=== PATIENT | female | born 1970 | race Caucasian/White ===

== ENCOUNTER 2016-10-28 08:56 | Day surgery (SDC) | payer OTHER ==
[~2016-10-28] VITALS: Ht 170.2 cm; Wt 77.9 kg
[~2016-10-28 08:56] MED LIST: Aloe Vera PO; CeFAZolin Inj 2 GM in IV Premix 1 EACH IV ONE; DICY20TA10 PO; FLUT15.88 NS; GLUT500T8 PO; LACT1CAP65 PO; LEVO50TA6 PO; Lactated Ringer's 1,000 ML IV ONE; OMEG1CAP25 PO; RANI150C4 PO; SIME80TA53 PO
[2016-10-28] MEDS ORDERED: Rocuronium 10 mg/mL 5 mL Inj ONE (08:57)
[2016-10-28] MEDS ORDERED: Dexamethasone 4 mg/mL Inj ONE (08:57)
[2016-10-28] MEDS ORDERED: Glycopyrrolate 0.2 mg/mL 5 mL Inj ONE (08:57)
[2016-10-28] MEDS ORDERED: Succinylcholine Chloride 20 mg/mL 5 mL Inj ONE (08:57)
[2016-10-28] MEDS ORDERED: Propofol 10,000 mCg/mL 20 mL Inj ONE (08:57)
[2016-10-28] MEDS ORDERED: Neostigmine 1 mg/mL 5 mL Inj ONE (08:57)
[2016-10-28] MEDS ORDERED: fentaNYL-PF 50 mCg/mL 2 mL Inj ONE (08:57)
[2016-10-28] MEDS ORDERED: Ondansetron 2 mg/mL 2 mL Inj ONE (08:57)
[2016-10-28] MEDS ORDERED: IRON PO (09:18)
[2016-10-28] MEDS ORDERED: LORA0.5T PO (09:18)
[2016-10-28] MEDS ORDERED: DOXY25TA46 PO (09:18)
[2016-10-28] MEDS ORDERED: OMEP20TA24 PO (09:18)
[2016-10-28 09:42] VITALS: BP 126/66; PULSE 58; RESP 16; O2SAT 98
--- NOTE | 2016-10-28 11:25 | DRSVH ---
PROCEDURE: NM SENTINEL NODE INJECTION ONLY, RIGHT BREAST RADIOPHARMACEUTICAL: 0.5 mCi Millipore filtered Tc-99m sulfur colloid. INDICATIONS: 46 year-old woman with right breast cancer. PROCEDURE: The indications, alternatives, benefits, risks, and complications of the procedure were explained to the patient. Written informed consent was obtained and placed in the chart. The area around the nip ple was prepped and draped in a sterile fashion. Tc-99m sulfur colloid was injected in the outer edg e of the areola in the right breast. No image was obtained. IMPRESSION: Administration of radiotracer into the right breast periareolar region for intra-operati ve sentinel lymph node localization. Dictated by: Swapna Krishna M.D. on 10/28/2016 at 11:22 Approved by: Swapna Krishna M.D. on 10/28/2016 at 11:23
[2016-10-28] MEDS ORDERED: Lactated Ringer's 500 ML IV PRN (12:51)
[2016-10-28] MEDS ORDERED: Lactated Ringer's 1,000 ML IV SCH (12:51)
--- NOTE | 2016-10-28 12:51 | PCM.HPANE ---
Patient Data Surgeon Admitting Provider: Attending Provider:Stephanie Montoya MD Primary Care Physician:Deep Mcnulty DO Other Provider:Roman Foley Anesthesia Reason for Visit Right Breast Cancer Ht/WT & BMI Height (Feet): 5 Height (Inches): 7 Weight (Kilograms): 77.9 Body Mass Index 26.00 Allergies Coded Allergies: metronidazole (Verified Allergy, Severe, Migraine Headache,n&v, 10/24/16) Uncoded Allergies: DUST,DANDER, CEDAR POLLEN (Adverse Reaction, Severe, congestion, sneezing, runny nose, itching eyes, 10/24/16) Past Anesthesia History Anesthesia History: Denies:: Anesthesia Reactions, Malignant Hyperthermia Diabetes History Hx Diabetes?: No MRSA MRSA: No Medications Hypertension Medication: No Home Meds Incl Beta Supriya: No Reported Medications [Iron] No Conflict Check25 Mg PO DAILY 10/28/16 Lorazepam 0.5 Mg Tablet0.5 Mg PO TID PRN For Anxiety Ref 0 10/28/16 Doxylamine Succinate (Unisom)25 Mg Bpewfn62.5 Mg PO HS 10/28/16 Omeprazole Magnesium (Prilosec Otc)20 Mg Tablet.dr20 Mg PO DAILY #1 PKG Ref 0 10/28/16 Glutamine (l-Glutamine)500 Mg Juwyds082 Mg PO DAILY 10/24/16 Simethicone (Gas-X)80 Mg Tpokrz19 Mg PO QID PRN prn PT USES 80MG "CHEWS" 10/24/16 [Aloe Vera] No Conflict Fxdcw222 Mg PO DAILY 09/25/16 Lactobacillus Acidophilus (Probiotic)1 Each Capsule1 Each PO DAILY 09/25/16 Gilman-3 Fatty Acids/Fish Oil (Gilman 3 Fish Oil Softgel)1 Each Capsule.dr1 Each PO DAILY 09/25/16 Dicyclomine 20 Mg Alcbqe77 Mg PO QID PRN For GI Cramps Ref 0 09/25/16 Fluticasone Propionate 50 Mcg/Actuation [place].susp15.8 Ml NS DAILY 09/25/16 Ranitidine 150 Mg Nnunuhj049 Mg PO BID Ref 0 09/25/16 Levothyroxine 50 Mcg Pwvunr63 Mcg PO DAILY Ref 0 09/25/16 Discontinued Reported Medications [Comfort Iron] No Conflict Check25 Mg PO DAILY 09/25/16 Simethicone (Gas-X)125 Mg Gitmpya987 Mg PO PRN For Indigestion 09/25/16 Doxylamine Succinate (Unisom)25 Mg Tablet6 Mg PO HS PRN Insomnia 09/25/16 Omeprazole Magnesium (Prilosec Otc)20 Mg Tablet.dr20 Mg PO DAILY PRN For Indigestion #1 PKG Ref 0 09/25/16 History History of ENT Problems?: Yes HEENT History: Positive for:: Sinus Problem (ENVIRONMENTAL ALLERGIES (PETS, DUST,TREES)) Denies:: Cataracts Hearing Problem Hx of Heart Problems?: No Cardiovascular History: Denies:: Heart Murmur Hypertension Other Cardiac History: HX OF ANEMIA Hx of Respiratory Problem?: No Respiratory History: Denies:: Use of C-PAP Machine Hx Neurologic Problems?: No Hx of GI Problems?: Yes Gastrointestinal History: Positive for:: Gastroesphageal Reflux (on H2B and PPI) Other GI Pertinent History: IBS W/ CONSTIPATION Hx of Problems?: No Female Hx: Positive for:: Problems with Breasts? (S/P RT BREAST BX RT BREAST CA=CURRENT PROBLEM) Denies:: Currently Endometriosis Pelvic Inflammatory Skin History: Denies:: History Skin Disorders? Pressure Ulcers Hx Musculoskeletal Problems?: Yes Hx of Psycho/Social Problems?: Yes Psycho Social History: Positive for:: Hx Depression (Post ) Hx Surgeries?: Yes (L5S1 FUSION,RT BREAST BX) Hx Any Other Health Problems?: Yes Other History: Positive for:: Cancer (Right Breast Cancer) Hospitalization ([facility]) Thyroid Disease Denies:: Endocrine Disease History Blood Transfusions: Denies:: Blood Transfusions Hx Diabetes: No Hx Alcohol Use: YesAlcoholic Drinks Per Day: 4X/YRHx Substance Use: No Smoking Status: Never Smoker Have You Smoked inLast 12 mo: No Stop/Bang S-Snoring: Do You Snore Loudly: No T-Tired: feel tired, fatigued: No O-Obsered: Observed not breath: No P-Blood Pressure: treated: No B- Body Mass Index > 35 kg/m2: No A- Age over 50: No N- Neck Large Circumference: No G- Gender Male: No DARLYN Total Score: 0 DARLYN Risk Assessment: Low Risk, <3 Yes Risk Assessment Category Category 1A: Patient has history of documented sleep apnea, and HAS NOT received any narcotic, sedative or anesthesia administration during this stay. Category 1B: Patient has history of documented sleep apnea, and HAS received any narcotic , sedative or anesthesia administration during this stay Category 2: Patient has SUSPECTED Obstructive Sleep Apnea, and HAS received any narcotic , sedative or anesthesia administration during this stay. Category 3: Patient has SUSPECTED Obstructive Sleep Apnea and HAS NOT received narcotic, sedative or anesthesia administration during this stay. Category 4: Outpatient in Procedural Areas with known sleep apnea or who screen positive for High Risk via the STOP/BANG questionnaire. Exam Exam Vital Signs Vital Signs Date Time Temp Pulse Resp B/P Pulse Ox O2 Delivery O2 Flow Rate FiO2 10/28/16 09:42 36.1 58 16 126/66 98 Room Air General Appearance: Alert, Oriented X3, Cooperative, No Acute Distress HEENT/AIRWAY: MP 2 Lungs: Clear to Auscultation, Normal Air Movement Heart: Exam Unremarkable, Regular Rate/Rhythm, No Murmurs/Rubs/Gallops Meds/Labs/Diagnostics Admission Meds Current Medications Lactated Ringer's (Lr) 1,000 ml @ 120 mls/hr Q8H20M ONCE IV Last administered on 10/28/16t 09:13; Start 10/28/16 at 05:00; Stop 10/28/16 at 13:19 Plan Impression Patient chart reviewed, patient interviewed and anesthestic plan with risks, benefits, and alternatives discussed, and informed consent obtained. NPO Status: 10/27/16 ASA Physical Status: ASA2 Mod Systemic Disease Anesthetic Plan: GA (GETA secondary to GERD) Bene/Risks/Altern/Consents: Yes HP Complete Prior to Induction: Yes Duane Rosa MD Oct 28, 2016 10:53
[2016-10-28] MEDS ORDERED: POLY17PO6 PO (12:52)
[2016-10-28] MEDS ORDERED: OXYC5TAB72 PO (12:52)
[2016-10-28] MEDS ORDERED: Ondansetron 2 mg/mL 2 mL Inj IVPUSH PRN (12:55)
[2016-10-28] MEDS ORDERED: EPHEDrine Sulfate 50 mg/mL Inj IVPUSH PRN (12:55)
[2016-10-28] MEDS ORDERED: Labetalol 5 mg/mL 4 mL Inj IV PRN (12:55)
[2016-10-28] MEDS ORDERED: hydrALAZINE 20 mg/mL Inj IVPUSH PRN (12:55)
[2016-10-28] MEDS ORDERED: Atropine 0.4 mg/mL Inj IVPUSH PRN (12:55)
[2016-10-28] MEDS ORDERED: Phenylephrine 10,000 mCg/mL Inj IVPUSH PRN (12:55)
[2016-10-28] MEDS ORDERED: fentaNYL-PF 50 mCg/mL 2 mL Inj IVPUSH PRN (12:55)
[2016-10-28] MEDS ORDERED: MetoCLOpramide 5 mg/mL 2 mL Inj IVPUSH PRN (12:55)
[2016-10-28] MEDS ORDERED: HYDROmorphone 1 mg/mL Inj IVPUSH PRN (12:55)
[2016-10-28] MEDS ORDERED: Bupivacaine-MPF 0.5% 30 mL Inj INFILTRATE ONE (13:16)
[2016-10-28 15:00] VITALS: BP 115/69; PULSE 64; RESP 14; O2SAT 97
[2016-10-28 15:10] VITALS: BP 120/62; PULSE 58; RESP 17; O2SAT 98
--- NOTE | 2016-10-28 15:10 | PCM.ANEP1 ---
Post Anesthesia Phase 1 PACU Phase 1 Assessment Vital Signs Vital Signs Date Time Temp Pulse Resp B/P Pulse Ox O2 Delivery O2 Flow Rate FiO2 10/28/16 09:42 36.1 58 16 126/66 98 Room Air Anesthetic Administered: GA Level of Alertness: Awake, talking ANDRADE's with Equal Strength: Yes Pain: No Nausea or Vomiting: No Oxygen Delivery: Nasal Cannula Lungs: Clear to Auscultation, Normal Air Movement Summary VSS Duane Rosa MD Oct 28, 2016 15:10
--- NOTE | 2016-10-28 15:13 | PCM.ANEP2 ---
Post Anesthesia Evaluation ASA/CMS Post Anesthesia VS in Patient's Normal Range?: Yes Resp Stable; Airway Patent?: Yes CV Function & Hydration Stable: Yes Mental Status Recovered?: Yes Pain control Satisfactory?: Yes N/V Control Satisfactory?: Yes Duane Rosa MD Oct 28, 2016 15:13
[2016-10-28 15:19] VITALS: BP 118/62; PULSE 61; RESP 17; O2SAT 98
--- NOTE | 2016-10-28 15:22 | PCM.SURGPO ---
Immediate Operative Note Date of Surgery: Oct 28, 2016 Pre Operative Diagnosis Right Breast Cancer Post Operative Diagnosis Right Breast Cancer Procedure Wire localized Right Partial Mastectomy with [place] Lymph node biopsy Surgeon and Title Curator Surgeon: Stephanie Montoya MD Assistants: Maciel Aguilera PAC Findings Specimen radiograph with clip, SLN with count of 1436, background less than 5% Complications There were no periprocedural complications identified. Surgical Specimen Removed: Yes Specimen sent to Pathology: Yes Surgical Specimen description: 1. Wire localized R partial mastectomy 2. R Axillary SLN #1 Anesthetic Administered: GA Grafts, Implants: None Output, Estimated Blood Loss: 0 Blood Admin during surgery: No Attending Statement Figure Skater listed was medically necessary for the successful completion of the case Stephanie Montoya MD Oct 28, 2016 15:22
[2016-10-28 15:36] VITALS: BP 113/70; PULSE 63; RESP 16; O2SAT 96
[2016-10-28 15:45] VITALS: BP 116/64; PULSE 75; RESP 16; O2SAT 96
--- NOTE | 2016-10-28 18:42 | OP ---
[address] [address] OPERATIVE REPORT PATIENT: ALLA WISE : 1970 MR#: [id number] ADMIT: 10/28/2016 JOB ID: [id number] DATE OF SURGERY: 10/28/2016 PREOPERATIVE DIAGNOSIS(ES): T2, N0 right breast cancer. POSTOPERATIVE DIAGNOSIS(ES): T2, N0, right breast cancer. PROCEDURE PERFORMED: Wire localized right partial mastectomy and right axillary sentinel lymph node biopsy. SURGEON: Stephanie Montoya MD. MOTORCOACH OPERATOR: Maciel Aguilera PA-C. INDICATIONS: The patient is a 46-year-old lady who had a diagnosis of right breast cancer based on a screening mammogram done on September 04, 2016. She has not had any symptoms. A screening mammogram showed clustered amorphous calcifications in the right breast posterior depth, superior region. She had a stereotactic core biopsy on September 18, 2016, which showed invasive ductal carcinoma, ER positive, FL positive, and HER-2 negative. Breast MRI showed a 2.8 cm area around the biopsy cavity with delayed vascular enhancement. There was an additional lesion on the left breast in posterior depth and mildly prominent lymph node in the right axilla. She had a second-look ultrasound which did not corroborate the findings of the MRI and she had BRCA testing which was found to be negative. After discussing the risks, benefits, and alternatives, she is here today for wire localized right partial mastectomy and right axillary sentinel lymph node biopsy. PROCEDURE DETAILS: She had a wire localization [facility] earlier today, and after, had radiocolloid injection in the Day Surgery area. She was then brought to the operating room. Right breast and axilla were prepped and draped in the usual sterile fashion. Surgical time-out was undertaken using safety checklist, and all were in agreement. I began by first making sure we had good activity in the axilla with the gamma probe, which we did. I then made a curvilinear incision in the right breast, superomedial to the wire insertion site. I raised skin flaps towards the wire and then delivered the wire into the surgical field. I then circumferentially dissected a spherical specimen with sharp dissection, going posteriorly all the way down to the pectoralis major muscle. After getting down to the chest wall, I marked the specimen, orienting it with a short stitch superior, long stitch lateral, and then lifted the specimen off the pectoralis muscle, including the pectoralis fascia within the specimen. After removing the specimen, I marked the posterior margin with a double stitch and then obtained a specimen radiograph which showed the clip to be well centered in the specimen. At this point, I directed my attention to the right axilla and made an incision immediately posterior to the breast into the right axilla, where we had maximal activity and divided the skin and subcutaneous tissue sharply and approached the axilla. The first specimen I took off the right axilla. It actually turned out to be axillary fascia superficially with no lymph nodes. After that, I was able to isolate the sentinel lymph node, which did appear somewhat elongated, and I removed it with a combination of blunt and sharp dissection, controlling the lymphatic channels with some small clips. The axillary count on the sentinel lymph node was 1436, with a background in the axilla after that being 20. After ensuring hemostasis, the skin incision was reapproximated with 3-0 Vicryl, followed by 4-0 Monocryl. Steri-Strips and a sterile dressing were applied. Patient was recovered from anesthesia and was taken to the recovery room in a stable condition. MADDY
--- NOTE | 2016-10-29 07:14 | DRSVH ---
SPECIMEN RIGHT BREAST: 10/28/2016 CLINICAL: Breast specimen. Correlation is made to exams dated: 10/28/2016 mammogram, 09/18/2016 stereotactic biopsy, 09/04/2016 ma mmogram, and 09/04/2016 mammogram - [facility]. A lumpectomy specimen was imaged for the previous biopsy site located in the right breast at 1 o'isai ck anterior depth. IMPRESSION: SPECIMEN The imaged specimen includes a biopsy clip and the distal portion of the localization wires. This exam was interpreted at Station ID: [id number]. Varsha forrest/juan daniel:10/28/2016 16:00:14 Additional referring physicians: LORIN SALAZAR, AYSHA WISEMAN
[2016-10-29] MEDS ORDERED: Polyethylene Glycol (PEG) 17 Gm Powder PO SCH (08:30)
--- NOTE | 2016-11-01 10:10 | PATH ---
SURGICAL PATHOLOGY Attending Physician:Stephanie Montoya MD CASE STATUS: Signed Out PATIENT NAME: ALLA WISE PID: [id number] : 1970 DATE COLLECTED:10/28/2016 22:44 SPECIMEN: 1: Breast, Simple Mastectomy (lymph nodes submitted separately) 2: [place] Lymph Node CLINICAL HISTORY: RIGHT BREAST CANCER 1). RIGHT PARTIAL MASTECTOMY, RIGHT UPPER INNER QUADRANT, STITCH SHORT SUPERIOR, LONG LATERAL , DOUBLE POSTERIOR 2). RIGHT AXILLARY SENTINEL LYMPH NODE, TIME OUT OF BODY 13:55 TIME IN FORMALIN 13:58 FINAL DIAGNOSIS: 1.RIGHT BREAST WIRE LOCALIZATION EXCISIONAL SPECIMEN: STATUS POST NEEDLE BIOPSY, RECENT WITH RESIDUAL DUCT CARCINOMA IN SITU, BUT NO RESIDUAL INVASIVE MALIGNANCY (SEE [id number]). 1.SPECIMEN INTEGRITY: INTACT. 2.SPECIMEN SIZE: 2.8 X 5.8 X 5.0 CM. 3.LARGEST AREA OF DCIS: 0.7 CM. 4.HISTOLOGIC TYPE: SOLID, INTERMEDIATE TO HIGH NUCLEAR GRADE, WITHOUT NECROSIS. 5.MICROCALCIFICATIONS: PRESENT. 6.SURGICAL MARGINS: DCIS PRESENT 0.2 CM FROM THE INKED ANTERIOR MARGIN AND 0.1 CM FROM THE INKED LATERAL MARGIN. ALL OTHER MARGINS GREATER THAN 1.0 CM. 7.AXILLARY LYMPH NODES: SINGLE SENTINEL LYMPH NODE NEGATIVE FOR MALIGNANCY (SEE PART 2). 8.HORMONE RECEPTOR STATUS (PERFORMED ON PREVIOUS NEEDLE BIOPSY [id number]): ESTROGEN RECEPTOR POSITIVE, PROGESTERONE RECEPTOR POSITIVE, AND HER2-CALLIE NEGATIVE, ALL BY IMMUNOHISTOCHEMISTRY. 9.PATHOLOGIC STAGE (BASED ON LARGEST LINEAR MEASUREMENT OF INVASIVE CARCINOMA ON PREVIOUS BIOPSY 0.5 CM): pT1a, pN0 (sn). 2.RIGHT AXILLARY SENTINEL LYMPH NODE: NEGATIVE FOR MALIGNANCY BY SERIAL HISTOLOGIC SECTIONS. ICD10 CODE C50.211 GROSS DESCRIPTION: The specimens are received in formalin, labeled with the patient's name, and sublabeled as the following: (1) right partial mastectomy upper inner quadrant; (2) right axillary sentinel lymph node. (1) The specimen consists of a piece of breast tissue (2.8 cm AP, 5.8 cm SI, 5.0 cm ML) with no overlying skin. The specimen is oriented with 3 black sutures (short-superior, long-lateral, double-posterior). A localization wire is present. The specimen is serially sectioned SI into 17 slices, each approximately 0.3 cm thick, with the superior and inferior resection margins as slices #1 and #17 respectively. The breast tissue is fatty and contains a ahn-white solid, partially hard, ill defined fibrous area (3.3 x 1.5 x 1.2 cm) within slices #7-#17. This area is less than 0.1 cm from the anterior, 0.4 cm from the posterior, 2.2 cm from the superior, less than 0.1 cm from the inferior, 2.5 cm from the medial, and 0.5 cm from the lateral resection margins. A cystic cavity (0.8 x 0.7 x 0.5 cm) is located within slices #12 and #13. The cavity contains a ahn-brown solid gelatinous material. No defined masses or lesions are identified. Ink code: purple-anterior; yellow-posterior; black-superior; orange-inferior; green-medial; blue-lateral. Section code: (1A) superior resection margin, perpendicularly sectioned, telemarketing representative; (1B-1C) slice #6, tissue adjacent to irregular area, bisected and submitted ML, entirely submitted; (1D) slice #7, bisected ML, lateral half submitted; (1E) slice #8, bisected ML, lateral half submitted; (1F) slice #9, bisected ML, lateral half submitted; (1G-1H) slice #10, bisected and submitted ML, entirely submitted; (1I, 1J) slice #11, bisected and submitted ML, entirely submitted; (1K) slice #12, bisected and mouth, lateral half submitted; (1L) slice #13, bisected ML, lateral half submitted; (1M) slice #14, bisected ML, lateral half submitted; (1N-1O) slice #15, bisected and submitted ML, entirely submitted; (1P) slice #16, entirely submitted; (1Q) inferior resection margin, perpendicularly sectioned, telemarketing representative. (2) The specimen consists of a lymph node (1.6 x 1.4 x 0.5 cm). Section code: (2A-2B) one lymph node, serially sectioned. Specimen is entirely submitted. Note: Approximate total fixation time in formalin for both specimens-28 hours and 30 minutes calculated using a collection date of October 28, 2016 with a time in fixative of 1358. 10/29/16 JM MICRO DESCRIPTION: Sections from part 1 are from a right breast excisional specimen performed following a wire localization. The grossly-described mass consists primarily of fibrosis and inflammatory changes from the previous biopsy. In this area, however, there is residual duct carcinoma in situ, which is of intermediate to high nuclear grade. The pattern is solid, and there is no evidence of necrosis. Several foci are present, the largest of which measures 0.7 cm. In an attempt to ascertain whether some of these areas might represent invasive malignancy, immunohistochemistry is performed on blocks 1K and 1L. The antibodies utilized are high molecular weight cytokeratin and P63, and these are clearly positive, indicating that these areas represent DCIS and not invasive malignancy. In block 1H there is an area suggestive of possible vascular invasion. Immunohistochemistry utilizing antibodies against CD31 is performed on this block, and the area in question is negative, indicating that this is DCIS and not vascular invasion. The DCIS is present 0.2 cm from the anterior margin and 0.1 cm from the lateral margin. All other margins are greater than 1.0 cm. Microcalcifications are focally present in association with the DCIS. Sections from part 2 are of a right axillary sentinel lymph node which is examined by serial histologic sections. The node is negative for malignancy. This test was developed and its performance characteristics determined by [facility]. It has not been cleared or approved by the U. S. Food and Drug Administration. The FDA has determined that such clearance or approval is not necessary. This test is used for clinical purposes. It should not be regarded as investigational or for research. ICD-9 CODES: CPT CODES: 1: 02704, 38074, 85857, 02915, 43094, 06618 2: 35328 Electronically Signed Out Glenroy Oliva MD [facility] Pathology [facility] [address], [place] [address] Technical component performed at [facility], [address], [place], [address]
[2017-01-08] MEDS ORDERED: TAMO20TA4 PO (15:15)
== END 2016-10-28 23:59 | disposition home or self-care (01) ==
LOC: SAS 08:56
PROVIDERS: ATTEND Student in an Organized Health Care Education/Training Program
DX: C50.211 Malignant neoplasm of upper-inner quadrant of right female breast (principal); Z17.0 Estrogen receptor positive status [ER+]; E03.9 Hypothyroidism, unspecified; K58.9 Irritable bowel syndrome, unspecified
CPT/HCPCS: 19301; 38525; 38792; 76098; A9541; J0330; J0690; J1100; J2250; J2405; J2710; J3010; J7120

== ENCOUNTER 2016-11-14 10:44 | Day surgery (SDC) | payer OTHER ==
[~2016-11-14] VITALS: Ht 170.2 cm; Wt 78.7 kg
[2016-11-14] VITALS (10 sets, daily range): BP systolic 112–121; BP diastolic 62–75; PULSE 60–92; RESP 9–18; O2SAT 96–100
--- NOTE | 2016-11-14 08:20 | PCM.HPANE ---
Patient Data Date of Service: Nov 14, 2016 Surgeon Admitting Provider: Attending Provider:Stephanie Montoya MD Primary Care Physician:Nelly Schroeder Other Provider:Roman Foley Anesthesia Reason for Visit Right Breast Cancer Ht/WT & BMI Height (Feet): 5 Height (Inches): 7 Weight (Kilograms): 77.9 Body Mass Index 26.00 Allergies Coded Allergies: metronidazole (Verified Allergy, Severe, Migraine Headache,n&v, 10/24/16) Uncoded Allergies: DUST,DANDER, CEDAR POLLEN (Adverse Reaction, Severe, congestion, sneezing, runny nose, itching eyes, 10/24/16) Past Anesthesia History Anesthesia History: Denies:: Anesthesia Reactions, Malignant Hyperthermia Diabetes History Hx Diabetes?: No MRSA MRSA: No Medications Hypertension Medication: No Home Meds Incl Beta Supriya: No Active Scripts oxyCODONE 5 Mg Tablet5 Mg PO Q4H PRN For Moderate Pain #30 TABLET Prov:Stephanie Montoya MD 10/28/16 Polyethylene Glycol 3350 (Miralax)17 Gm Powd.pack17 Gm PO DAILY #30 Prov:Stephanie Montoya MD 10/28/16 Reported Medications [Iron] No Conflict Check25 Mg PO DAILY 10/28/16 Lorazepam 0.5 Mg Tablet0.5 Mg PO TID PRN For Anxiety Ref 0 10/28/16 Doxylamine Succinate (Unisom)25 Mg Reysgw04.5 Mg PO HS 10/28/16 Omeprazole Magnesium (Prilosec Otc)20 Mg Tablet.dr20 Mg PO DAILY #1 PKG Ref 0 10/28/16 Glutamine (l-Glutamine)500 Mg Motimp789 Mg PO DAILY 10/24/16 Simethicone (Gas-X)80 Mg Pppwrv90 Mg PO QID PRN prn PT USES 80MG "CHEWS" 10/24/16 [Aloe Vera] No Conflict Wvcpn387 Mg PO DAILY 09/25/16 Lactobacillus Acidophilus (Probiotic)1 Each Capsule1 Each PO DAILY 09/25/16 Pan[place]-3 Fatty Acids/Fish Oil ([place] 3 Fish Oil Softgel)1 Each Capsule.dr1 Each PO DAILY 09/25/16 Dicyclomine 20 Mg Oajxab00 Mg PO QID PRN For GI Cramps Ref 0 1/11/17 Fluticasone Propionate 50 Mcg/Actuation [place].susp15.8 Ml NS DAILY 09/25/16 Ranitidine 150 Mg Zudtfka155 Mg PO BID Ref 0 09/25/16 Levothyroxine 50 Mcg Ksocjk70 Mcg PO DAILY Ref 0 09/25/16 History History of ENT Problems?: Yes HEENT History: Positive for:: Sinus Problem (environmental allergies) Denies:: Cataracts Hearing Problem Hx of Heart Problems?: No Cardiovascular History: Denies:: Edema Heart Murmur Hypertension Hx of Respiratory Problem?: No Respiratory History: Denies:: Asthma COPD Emphysema Oxygen Administration Pneumonia Tuberculosis Use of C-PAP Machine Use of Inhalers / NEBS Hx Neurologic Problems?: No Neurological History: Denies:: CVA Dementia Dizziness Headaches Multiple Sclerosis Parkinson's Disease Seizures Hx of GI Problems?: Yes Gastrointestinal History: Positive for:: Gastroesphageal Reflux Heartburn Denies:: Hepatitis Hiatal Hernia Liver Disease Hx of Problems?: No Female Hx: Positive for:: Problems with Breasts? (right breast mastectomy margins current admission problem) Denies:: Currently Endometriosis Pelvic Inflammatory Skin History: Denies:: History Skin Disorders? Pressure Ulcers Hx Musculoskeletal Problems?: Yes Musculoskeletal History: Positive for:: Back Injury (hx of fusion) Hx of Psycho/Social Problems?: Yes Psycho Social History: Positive for:: Hx Depression (Post ) Hx Surgeries?: Yes (L5S1 fusion, right breast mastectomy) Hx Any Other Health Problems?: Yes Other History: Positive for:: Cancer (Right Breast Cancer) Hospitalization ([facility]) Thyroid Disease Denies:: Endocrine Disease History Blood Transfusions: Denies:: Blood Transfusions Hx Diabetes: No Hx Alcohol Use: YesHx Substance Use: No Smoking Status: Never Smoker Have You Smoked inLast 12 mo: No Stop/Bang Treated for Sleep Apnea?: No Do You Have a CPAP Machine?: No P-Blood Pressure: treated: No B- Body Mass Index > 35 kg/m2: No A- Age over 50: No N- Neck Large Circumference: No G- Gender Male: No DARLYN Risk Assessment: Low Risk, <3 Yes Risk Assessment Category Category 1A: Patient has history of documented sleep apnea, and HAS NOT received any narcotic, sedative or anesthesia administration during this stay. Category 1B: Patient has history of documented sleep apnea, and HAS received any narcotic , sedative or anesthesia administration during this stay Category 2: Patient has SUSPECTED Obstructive Sleep Apnea, and HAS received any narcotic , sedative or anesthesia administration during this stay. Category 3: Patient has SUSPECTED Obstructive Sleep Apnea and HAS NOT received narcotic, sedative or anesthesia administration during this stay. Category 4: Outpatient in Procedural Areas with known sleep apnea or who screen positive for High Risk via the STOP/BANG questionnaire. Exam Exam General Appearance: Alert, Oriented X3, Cooperative, No Acute Distress HEENT/AIRWAY: MP 2 Lungs: Clear to Auscultation, Normal Air Movement Heart: Exam Unremarkable, Normal S1, Normal S2, No Murmurs/Rubs/Gallops Plan Impression Patient chart reviewed, patient interviewed and anesthestic plan with risks, benefits, and alternatives discussed, and informed consent obtained. NPO Status: 10/27/16 ASA Physical Status: ASA2 Mod Systemic Disease Anesthetic Plan: GA Bene/Risks/Altern/Consents: Yes HP Complete Prior to Induction: Yes Christopher Leonard DO Nov 14, 2016 08:19
[~2016-11-14 10:44] MED LIST changes: +DOXY25TA46 PO; +IRON PO; +LORA0.5T PO; -Lactated Ringer's 1,000 ML IV ONE; +OMEP20TA24 PO; +OXYC5TAB72 PO; +POLY17PO6 PO
[2016-11-14] MEDS ORDERED: Propofol 10,000 mCg/mL 20 mL Inj ONE (10:45)
[2016-11-14] MEDS ORDERED: Dexamethasone 4 mg/mL Inj ONE (10:45)
[2016-11-14] MEDS ORDERED: Atropine 0.4 mg/mL 5 mL Inj ONE (10:45)
[2016-11-14] MEDS ORDERED: fentaNYL-PF 50 mCg/mL 2 mL Inj ONE (10:45)
[2016-11-14] MEDS ORDERED: Ondansetron 2 mg/mL 2 mL Inj ONE (10:45)
[2016-11-14] MEDS ORDERED: Ketamine 10 mg/mL 20 mL Inj ONE (10:45)
[2016-11-14] MEDS ORDERED: CeFAZolin Inj 2 gm / 50mL D5W IV ONE (11:16)
[2016-11-14] MEDS: Lactated Ringer's 1,000 ML IV SCH ×2 (11:51→14:26)
[2016-11-14] MEDS ORDERED: Bupivacaine 0.5% 50 mL Inj INFILTRATE ONE (14:53)
[2016-11-14] MEDS ORDERED: Lactated Ringer's 500 ML IV PRN (14:59)
[2016-11-14] MEDS ORDERED: Lactated Ringer's 1,000 ML IV SCH (14:59)
[2016-11-14] MEDS ORDERED: MetoCLOpramide 5 mg/mL 2 mL Inj IVPUSH PRN (15:00)
[2016-11-14] MEDS ORDERED: Ondansetron 2 mg/mL 2 mL Inj IVPUSH PRN (15:00)
[2016-11-14] MEDS ORDERED: Labetalol 5 mg/mL 4 mL Inj IV PRN (15:00)
[2016-11-14] MEDS ORDERED: EPHEDrine Sulfate 50 mg/mL Inj IVPUSH PRN (15:00)
[2016-11-14] MEDS ORDERED: HYDROmorphone 1 mg/mL Inj IVPUSH PRN (15:00)
[2016-11-14] MEDS ORDERED: Atropine 0.4 mg/mL Inj IVPUSH PRN (15:00)
[2016-11-14] MEDS ORDERED: Phenylephrine 10,000 mCg/mL Inj IVPUSH PRN (15:00)
[2016-11-14] MEDS ORDERED: Dexamethasone 4 mg/mL Inj IVPUSH PRN (15:00)
[2016-11-14] MEDS ORDERED: fentaNYL-PF 50 mCg/mL 2 mL Inj IVPUSH PRN (15:00)
--- NOTE | 2016-11-14 15:20 | PCM.SURGPO ---
Immediate Operative Note Date of Surgery: Nov 14, 2016 Pre Operative Diagnosis T1 N0 Right Breast Cancer Post Operative Diagnosis T1 N0 Right breast Cancer Procedure Recexision of anterior and lateral margins on right partial mastectomy cavity Surgeon and Smart Grid Engineer Surgeon: Stephanie Montoya MD Assistants: Maciel Aguilera, PAC Findings Anterior & lateral margins removed in a single continuous specimen Complications There were no periprocedural complications identified. Surgical Specimen Removed: Yes Specimen sent to Pathology: Yes Surgical Specimen description: 1. Anterior & lateral margins of R partial mastectomy cavity Anesthetic Administered: GA Grafts, Implants: None Output, Estimated Blood Loss: 0 Blood Admin during surgery: No Attending Statement Supervisor Policy Change Clerks was not medically necessary for the successful completion of the case Stephanie Montoya MD Nov 14, 2016 15:19
--- NOTE | 2016-11-14 15:41 | PCM.ANEP1 ---
Post Anesthesia Phase 1 PACU Phase 1 Assessment Date of Service: Nov 14, 2016 Vital Signs Vital Signs Date Time Temp Pulse Resp B/P Pulse Ox O2 Delivery O2 Flow Rate FiO2 11/14/16 15:25 88 9 116/67 100 Simple Mask 7 11/14/16 15:20 92 12 113/62 100 Simple Mask 7 11/14/16 15:17 36.0 116/67 11/14/16 11:14 36.1 60 12 112/67 97 Room Air Anesthetic Administered: GA Level of Alertness: Awake, talking ANDRADE's with Equal Strength: Yes Pain: No Nausea or Vomiting: No Airway Device: LMA Oxygen Delivery: Simple Mask Lungs: Clear to Auscultation, Normal Air Movement Dermatome Level: Full Sensation Christopher Leonard DO Nov 14, 2016 15:41
--- NOTE | 2016-11-14 16:27 | PCM.ANEP2 ---
Post Anesthesia Evaluation ASA/CMS Post Anesthesia Date of Service: Nov 14, 2016 VS in Patient's Normal Range?: Yes Resp Stable; Airway Patent?: Yes CV Function & Hydration Stable: Yes Mental Status Recovered?: Yes Pain control Satisfactory?: Yes N/V Control Satisfactory?: Yes Christopher Leonard DO Nov 14, 2016 16:27
--- NOTE | 2016-11-14 17:52 | OP ---
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 PROCEDURE PERFORMED: Re-excision of anterior and lateral margins of the right partial mastectomy cavity. SURGEON: Stephanie Montoya MD DIRECTOR OF PHYSICAL SECURITY: Maciel Aguilera PA-C COMPLICATIONS: None. CONDITION OF THE PATIENT: Stable. INDICATIONS: The patient is a 46-year-old lady who had a diagnosis of right breast cancer based on a screening mammogram done on September 04, 2016. She has not had any symptoms. She had a stereotactic core biopsy which showed ER positive, NC positive, and HER-2 negative invasive ductal carcinoma. On October 28, 2016, I performed a wire localized right partial mastectomy with right axillary sentinel lymph node biopsy. There was no residual invasive ductal carcinoma seen on the partial mastectomy specimen, but this is a 7 mm focus of DCIS with a 1 mm margin on the lateral aspect and a 2 mm margin on the anterior aspect. The sentinel lymph nodes also were negative for any evidence of malignancy. After discussing the risks, benefits, and alternatives, she is here today for re-excision of margins. PROCEDURE DETAILS: She was placed in supine position. Underwent smooth induction of general anesthesia. The right breast was prepped and draped in the usual sterile fashion. Surgical time-out was undertaken using safety checklist. All were in agreement. We began by opening the partial mastectomy incision, evacuating the clear fluid. In inspecting the partial mastectomy cavity, I realized I could take an additional anterior margin in addition to the lateral margin, especially given the tracking of the cavity laterally starting from the incision. So, I began by creating a plane between the skin and anterior aspect of the partial mastectomy cavity with electrocautery and grabbed these tissues with Allis clamps and took this plane laterally all the way around the cavity, extending down to the chest wall. After detaching this specimen from the chest wall, I marked it, marking a long stitch on the lateral aspect, a double stitch on the anterior aspect, and a short stitch on the superior aspect of the specimen. We then ensured hemostasis, infiltrated the site with bupivacaine, and closed the incision back up with 4-0 Monocryl interrupted and subcuticular sutures. Sterile dressings were applied. The patient was recovered from anesthesia and was taken to the recovery room in stable condition.
--- NOTE | 2016-11-18 15:47 | PATH ---
SURGICAL PATHOLOGY Attending Physician:Stephanie Montoya MD CASE STATUS: Signed Out PATIENT NAME: RIA WISE PID: [id number] : 1970 DATE COLLECTED:11/14/2016 00:00 SPECIMEN: Breast Margin CLINICAL HISTORY: RIGHT BREAST CANCER, RE-EXCISION ANTERIOR AND LATERAL MARGINS 1). RIGHT PARTIAL MASTECTOMY, LONG-LATERAL, SHORT-SUPERIOR, DOUBLE-NEW ANTERIOR FINAL DIAGNOSIS: Right Breast, Anterior and Lateral Margins, Reexcision: Benign breast tissue with procedure-related changes. Microcalcifications are present in association with benign ducts. No evidence of atypical hyperplasia, in situ or invasive carcinoma. ICD10: C50.211 GROSS DESCRIPTION: The specimen is received in formalin, labeled with the patient's name, sublabeled as reexcision R mastectomy and consists of a piece of breast tissue (1.4 cm AP, 4.0 cm SI, 4.5 cm ML) with no overlying skin. The specimen is oriented with 3 black sutures (short-superior, long-lateral, double-new anterior). No localization wire is present. The breast tissue is densely fibrous with no nodules, masses or lesions identified. Ink code: purple-anterior; yellow-posterior; black-superior; orange-inferior; green-medial; blue-lateral. Section code: (A-L) breast tissue, serially sectioned and submitted ML. Specimen entirely submitted. Note: Approximately fixation time in formalin-28 hours and 45 minutes calculated using a collection date of November 14, 2016 with a time in fixative of 1450. 11/15/16 ICD-9 CODES: CPT CODES: 48548 Electronically Signed Out Ria Elias MD [facility] Pathology [facility] [address], [place] [address] Technical component performed at [facility], [address] [place] [address] Ave[address], [place], [address]
[2017-01-08] MEDS ORDERED: TAMO20TA4 PO (15:15)
== END 2016-11-14 23:59 | disposition home or self-care (01) ==
LOC: SAS 10:44
PROVIDERS: ATTEND Student in an Organized Health Care Education/Training Program
DX: C50.911 Malignant neoplasm of unspecified site of right female breast (principal); E03.9 Hypothyroidism, unspecified; Z17.0 Estrogen receptor positive status [ER+]
CPT/HCPCS: 19301; J0461; J0690; J1100; J2250; J2405; J3010; J7120